=== PATIENT | female | born 1980 | race Caucasian/White ===

== ENCOUNTER 2016-11-11 09:03 | Emergency (ER) | payer BC ==
[~2016-11-11] VITALS: Ht 160 cm; Wt 90.3 kg
[2016-11-11 09:12] VITALS: BP 130/62; PULSE 91; RESP 16; TEMP 98.4; O2SAT 99
[2016-11-11] MEDS ORDERED: PERC5TAB12 PO (10:11)
--- NOTE | 2016-11-11 10:20 | PD ---
HPI Chief Complaint: Pain: Acute or Chronic Time Seen by Provider: 09:54 Travel History International Travel<30 days: No Contact w/Intl Traveler<30days: No Traveled to known affect area: No History of Present Illness HPI She complains of an acute left mid back pain brought on when she coughed. No injury or trauma. She is 6 months but no pelvic pain or abdominal pain or vaginal bleeding or fluid gush. Symptom severity is moderate. She has reproducible tenderness in the left mid back. No fever. No shortness of breath. PFSH Past Medical History Medical History: Denies Significant Hx Tetanus Vaccination: > 5 Years Influenza Vaccination: No ?: Past Surgical History Surgical History: No Previous Surgery Social History Alcohol Use: No Tobacco Use: No Substance Use: No Allergies-Medications (Allergen,Severity, Reaction): Coded Allergies: No Known Allergies (Unverified , 11/11/16) Reported Meds & Prescriptions Reported Meds & Active Scripts Active Percocet (Oxycodone-Acetaminophen) 5-325 mg Tab 1 Tab PO Q6H PRN Review of Systems General / Constitutional: No: Fever HENT: No: Headaches Cardiovascular: No: Chest Pain or Discomfort Respiratory: Positive: Cough Musculoskeletal: Positive: Pain Physical Exam Narrative RESPIRATORY: Respiratory effort unlabored, no retractions or use of accessory muscles. Breath sounds are clear and symmetric. SKIN: Focused skin assessment reveals no rash or ulcers. Skin is warm and dry. Palpation shows no induration or nodules. GASTROINTESTINAL: Abdomen soft, non-tender, nondistended. Positive bowel sounds. No hepato-splenomegaly, or palpable masses. No guarding. Gravid uterus is nontender Back: No midline tenderness. Is readily reproducible tenderness at the bottom of the rib cage in the left side under the scapula. no bruising or swelling or spasm of muscles Data Data Last Documented VS Vital Signs Date Time Temp Pulse Resp B/P Pulse Ox O2 Delivery O2 Flow Rate FiO2 11/11/16 09:12 98.4 91 16 130/62 99 MDM Medical Decision Making Medical Screen Exam Complete: Yes Emergency Medical Condition: Yes Medical Record Reviewed: Yes Differential Diagnosis Intercostal muscle tear, back strain, rib fracture Narrative Course I have reviewed the patient's electronic medical record. I suspect the patient has a partial tear of an intercostal muscle brought on by coughing. There are no objective findings I discussed options with the patient and she does not want to have an x-ray due to her being . I wrote her a dozen pain pills that she will use only if needed. We had an extensive discussion about the risk of narcotic to the fetus. She will start with Tylenol She is flying home tomorrow and is to call her physician and get follow-up No indication this is anything to do with her She has a soft benign nontender abdomen and no pelvic or abdominal symptoms heart tones will be checked Diagnosis Primary Impression: Intercostal muscle tear Qualified Code: S29.019A - Intercostal muscle tear, initial encounter Additional Impression: Qualified Code: Z3A.24 - 24 weeks gestation of Additional Instructions: The patient was advised to follow up with their physician and return if they worsen. The patient was warned about potential sedation for the medications they will receive on prescription. Med/Other Pt SpecificInfo: Prescription(s) given Scripts Oxycodone-Acetaminophen (Percocet)5-325 mg Tab1 Tab PO Q6H PRN (PAIN) #12 TAB Ref 0 Prov:Roger Pandya MD 11/11/16 Disposition: 01 DISCHARGE HOME Condition: Stable Roger Pandya MD November 11, 2016 10:20
== END 2016-11-11 10:39 | disposition home or self-care (01) ==
LOC: PHED 09:03
DX: O99.89 Other specified diseases and conditions complicating pregnancy, childbirth and the puerperium (principal); S29.019A Strain of muscle and tendon of unspecified wall of thorax, initial encounter; R05 Cough; X58.XXXA Exposure to other specified factors, initial encounter; Z3A.24 24 weeks gestation of pregnancy
CPT/HCPCS: 99283